=== PATIENT | male | born 1985 | race African-American/Black ===

== ENCOUNTER 2020-04-02 00:25 | Emergency (ER) | payer SELFPAY ==
[2020-04-02] MEDS ORDERED: diphenhydrAMINE 50 MG/ML VIAL ONE (01:00)
[2020-04-02] MEDS ORDERED: Dexamethasone 10 MG/ML VIAL ONE (01:00)
== END 2020-04-02 01:27 | disposition home or self-care (01) ==
LOC: ERS 00:25
DX: L50.9 Urticaria, unspecified (principal)
CPT/HCPCS: 96374; 96375; J1100; J1200